=== PATIENT | female | born 1970 | race Two or more races ===

== ENCOUNTER 2017-12-30 16:57 | Inpatient (IN) | payer OTHER ==
[~2017-12-30] VITALS: Ht 177.8 cm; Wt 108.9 kg
[2017-12-31] MEDS ORDERED: NORVASC5 MG PO (10:56)
[2017-12-31] MEDS ORDERED: LEVOTHYROXINE25 MCG PO (10:56)
[2017-12-31] MEDS ORDERED: ATACAND32 MG PO (10:56)
[2018-01-02] MEDS ORDERED: MEGESTROL ACETA40 MG PO (08:51)
[2018-01-02] MEDS ORDERED: TANDEM PLUS CA1 EACH PO (08:51)
== END 2018-01-02 10:32 | DRG 812 ==
LOC: OB/GYN 16:57
PROC: BU4CZZZ Ultrasonography of Uterus and Ovaries (ICD-10-PCS; 2017-12-30)
PROC: 30233N1 Transfusion of Nonautologous Red Blood Cells into Peripheral Vein, Percutaneous Approach (ICD-10-PCS; principal; 2017-12-31)
DX: D50.0 Iron deficiency anemia secondary to blood loss (chronic) (principal); I10 Essential (primary) hypertension; E03.8 Other specified hypothyroidism; D25.9 Leiomyoma of uterus, unspecified; N92.0 Excessive and frequent menstruation with regular cycle

== ENCOUNTER 2019-07-08 07:15 | Outpatient (CLI) | payer OTHER ==
[~2019-07-08 07:15] MED LIST: ATACAND32 MG PO; LEVOTHYROXINE25 MCG PO; MEGESTROL ACETA40 MG PO; NORVASC5 MG PO; TANDEM PLUS CA1 EACH PO
== END 2019-07-08 07:25 | disposition home or self-care (01) ==
LOC: RAD 07:15
DX: E03.8 Other specified hypothyroidism (principal); E66.09 Other obesity due to excess calories; I10 Essential (primary) hypertension; D50.8 Other iron deficiency anemias; R92.2 Inconclusive mammogram; N92.4 Excessive bleeding in the premenopausal period; K62.5 Hemorrhage of anus and rectum; N92.5 Other specified irregular menstruation

== ENCOUNTER 2019-07-15 06:36 | Day surgery (SDC) | payer OTHER | END 2019-07-15 16:45 | disposition home or self-care (01) | LOC: CIR.AMB 06:36 | DX: D26.7 Other benign neoplasm of other parts of uterus (principal) ==